=== PATIENT | male | born 1980 | race Two or more races ===

== ENCOUNTER 2017-03-14 10:52 | Emergency (ER) | payer SELFPAY ==
[~2017-03-14] VITALS: Ht 193 cm; Wt 71.8 kg
[2017-03-14 11:21] LABS: BILIRUBIN,URINE NEGATIVE (NEG); GLUCOSE,URINE NEGATIVE (NEG); NITRITE,URINE NEGATIVE (NEG); PROTEIN,URINE NEGATIVE (NEG-TRACE); UROBILINOGEN,URINE 0.2 mg/dL (0.2 mg/dL)
[2017-03-14 11:54] LABS: BACTERIA,URINE 0 /HPF (0-FEW); RBC,URINE 0 /HPF (0-2); WBC,URINE 0 /HPF (0-4)
[2017-03-14 12:39] LABS: BASO % 1 % (0-3); EOS % 2 % (0-3); HEMATOCRIT 45.3 % (39.0-53.0); HEMOGLOBIN 15.2 g/dL (13.0-17.5); LYMPH # 1.3 x10^3/uL (1.0-4.8); LYMPH % 28 % (24-48); MEAN CORPUSCULAR HEMOGLOBIN 30 pg (25-35); MEAN CORPUSCULAR HGB CONC 34 g/dL (31-37); MEAN CORPUSCULAR VOLUME 91 fL (79-100); MONO % 9 % (0-9); NEUT % 61 % (31-73); PLATELET COUNT 284 x10^3/uL (140-400); RED CELL DISTRIBUTION WIDTH 13.5 % (11.5-14.5); WHITE BLOOD COUNT 4.8 x10^3/uL (4.0-11.0)
[2017-03-14] MEDS ORDERED: IV NORMAL SALINE 1000ML BAG 1,000 ML IV ONE (12:45)
[2017-03-14] MEDS ORDERED: ONDANSETRON PF 4 MG/2 ML VIAL. IV ONE (12:45)
--- NOTE | 2017-03-14 12:52 | PHYS DOC ---
Past Medical History Past Medical History: No Pertinent History Past Surgical History: No Surgical History Additional Information: "Almost 2 PPD" per pt. Alcohol Use: Occasionally Additional Information: "6 Pack a week," per pt. Drug Use: Marijuana Social History Narrative: Pt reports he smoked Marijuana yesterday. Adult General Chief Complaint Chief Complaint: FLANK PAIN HPI HPI Patient is a 36 year old male with no significant medical history who presents with multiple complaints. Patient states his had intermittent episodes of nausea vomiting and diarrhea for the last 3 weeks. Patient states his noted his lost 25 pounds in the last 1 month. Patient's also complaining of bilateral flank, and low back pain. Patient denies any hematemesis or melena. He states he has history of smoking. Patient is also complaining of left upper quadrant abdominal pain. Patient denies any fever. Review of Systems Review of Systems Constitutional: See history of present illness. Eyes: Denies change in visual acuity, redness, or eye pain [] HENT: Denies nasal congestion or sore throat [] Respiratory: Denies cough or shortness of breath [] Cardiovascular: No additional information not addressed in HPI [] GI: Left upper quadrant abdominal pain, nausea vomiting and diarrhea : Bilateral flank pain and low back pain Musculoskeletal: Denies back pain or joint pain [] Integument: Denies rash or skin lesions [] Neurologic: Denies headache, focal weakness or sensory changes [] Endocrine: Denies polyuria or polydipsia [] Current Medications Current Medications Current Medications Medications (Trade) Dose Ordered Sig/Donavon Start Time Stop Time Status Last Admin Dose Admin Famotidine (Pepcid) 20 mg 1X ONCE 03/14/17 13:00 03/14/17 13:01 DC 03/14/17 13:30 20 MG Morphine Sulfate 5 mg 1X ONCE 03/14/17 14:15 03/14/17 14:16 DC 03/14/17 14:26 5 MG Ondansetron HCl 4 mg 4 mg 1X ONCE 03/14/17 12:45 03/14/17 12:46 DC 03/14/17 12:45 4 MG Sodium Chloride (Iv Sodium Chloride 0.9% 1000ml Bag) 1,000 ml @ 1,000 mls/hr 1X ONCE 03/14/17 12:45 03/14/17 13:44 DC 03/14/17 12:45 1,000 MLS/HR Allergies Allergies Allergies Coded Allergies Type Severity Reaction Last Updated Verified No Known Drug Allergies 03/14/17 No Physical Exam Physical Exam Constitutional: Appears thinner than his height, no acute distress, non-toxic appearance. [] HENT: Normocephalic, atraumatic, bilateral external ears normal, oropharynx moist, no oral exudates, nose normal. [] Eyes: PERRLA, EOMI, conjunctiva normal, no discharge. [] Neck: Normal range of motion, no tenderness, supple, no stridor. [] Cardiovascular:Heart rate regular rhythm, no murmur [] Lungs & Thorax: Bilateral breath sounds clear to auscultation [] Abdomen: Bowel sounds normal, soft, no tenderness, no masses, no pulsatile masses. [] Skin: Warm, dry, no erythema, no rash. [] Back: No tenderness, no CVA tenderness. [] Extremities: No tenderness, no cyanosis, no clubbing, ROM intact, no edema. [] Neurologic: Alert and oriented X 3, normal motor function, normal sensory function, no focal deficits noted. [] Psychologic: Affect normal, judgement normal, mood normal. [] Current Patient Data Vital Signs Vital Signs Date Time Temp Pulse Resp B/P Pulse Ox O2 Delivery O2 Flow Rate FiO2 03/14/17 14:26 18 98 03/14/17 14:00 58 131/68 Room Air 03/14/17 11:17 97.6 97.6 Lab Values Laboratory Tests Test 03/14/17 11:05 03/14/17 12:25 Urine Collection Type Unknown Urine Color Yellow Urine Clarity Clear Urine pH 7.0 Urine Specific [place] 1.010 Urine Protein Negativemg/dL (NEG-TRACE) Urine Glucose (UA) Negativemg/dL (NEG) Urine Ketones (Stick) Negativemg/dL (NEG) Urine Blood Negative (NEG) Urine Nitrite Negative (NEG) Urine Bilirubin Negative (NEG) Urine Urobilinogen Dipstick 0.2mg/dL (0.2 mg/dL) Urine Leukocyte Esterase Negative (NEG) Urine RBC 0/HPF (0-2) Urine WBC 0/HPF (0-4) Urine Bacteria 0/HPF (0-FEW) White Blood Count 4.8x10^3/uL (4.0-11.0) Red Blood Count 5.00x10^6/uL (4.30-5.70) Hemoglobin 15.2g/dL (13.0-17.5) Hematocrit 45.3% (39.0-53.0) Mean Corpuscular Volume 91fL (79-100) Mean Corpuscular Hemoglobin 30pg (25-35) Mean Corpuscular Hemoglobin Concent 34g/dL (31-37) Red Cell Distribution Width 13.5% (11.5-14.5) Platelet Count 284x10^3/uL (140-400) Neutrophils (%) (Auto) 61% (31-73) Lymphocytes (%) (Auto) 28% (24-48) Monocytes (%) (Auto) 9% (0-9) Eosinophils (%) (Auto) 2% (0-3) Basophils (%) (Auto) 1% (0-3) Neutrophils # (Auto) 2.9x10^3uL (1.8-7.7) Lymphocytes # (Auto) 1.3x10^3/uL (1.0-4.8) Monocytes # (Auto) 0.4x10^3/uL (0.0-1.1) Eosinophils # (Auto) 0.1x10^3/uL (0.0-0.7) Basophils # (Auto) 0.0x10^3/uL (0.0-0.2) Sodium Level 138mmol/L (136-145) Potassium Level 3.9mmol/L (3.5-5.1) Chloride Level 102mmol/L (98-107) Carbon Dioxide Level 29mmol/L (21-32) Anion Gap 7 (6-14) Blood Urea Nitrogen 8mg/dL (8-26) Creatinine 0.9mg/dL (0.7-1.3) Estimated GFR (Cockcroft-Gault) 94.4 BUN/Creatinine Ratio 9 (6-20) Glucose Level 91mg/dL (70-99) Calcium Level 9.0mg/dL (8.5-10.1) Total Bilirubin 0.3mg/dL (0.2-1.0) Aspartate Amino Transferase (AST) 34U/L (15-37) Alanine Aminotransferase (ALT) 50U/L (16-63) Alkaline Phosphatase 55U/L (46-116) Total Protein 7.7g/dL (6.4-8.2) Albumin 3.7g/dL (3.4-5.0) Albumin/Globulin Ratio 0.9 (1.0-1.7) L Lipase 123U/L (73-393) Thyroid Stimulating Hormone (TSH) 1.409uIU/mL (0.358-3.74) Ethyl Alcohol Level < 10mg/dL (0-10) Laboratory Tests 03/14/17 12:25 Laboratory Tests 03/14/17 12:25 EKG EKG [] Radiology/Procedures Radiology/Procedures [] Course & Med Decision Making Course & Med Decision Making Pertinent Labs and Imaging studies reviewed. (See chart for details) This is a 36-year-old male patient who presents in the ED with multiple complaints including weight loss of 25 pounds in the last 1 month, nausea vomiting and diarrhea for 1 month on and off, left upper quadrant abdominal pain for 1 month, bilateral flank and low back pain for 1 month. Patient is a smoker. Educated on smoking cessation. Urine negative for infection. CBC CMP lipase with no acute findings. CT of the abdomen and pelvic was done to rule out kidney stones which the radiologist mentions patient could have primarily degenerative osteoarthritis of the SI joint and may be erosive in nature, or hyperthyroidism Radiology mentions patient may need to do blood tests including serum calcium and parathyroid levels. TSH is 1.49 and calcium is 9.0 Patient states he has an appointment with the [facility] clinic on March. Informed patient to make sure he follows up for this and they can follow up with CT concerns. Dragon Disclaimer Dragon Disclaimer This electronic medical record was generated, in whole or in part, using a voice recognition dictation system. Departure Departure Impression: Primary Impression: Smoking addiction Additional Impression: Back pain Disposition: HOME, SELF-CARE Condition: STABLE Referrals: NO PCP (PCP) [facility] as soon as you can Patient Instructions: Back Pain, Adult Additional Instructions: Your CT of the abdomen and pelvic was concerning for possible hyperthyroidism and degenerative osteoarthritis on your back. We recommend you follow-up with your doctor as soon as possible. Scripts Calcium Carbonate/Vitamin D3 (Calcium + Vitamin D Tablet)1 Each Tablet1 Each PO DAILY #30 TAB Prov:LEROY BEST APRN 03/14/17 Cyclobenzaprine Hcl 10 Mg Tablet1 Tab PO TID #30 TAB Prov:MUTUNGA,LEROY VERONIKA 03/14/17 Hydrocodone/Apap 5-325 ([place]ley 5-325 Tablet)1 Each Tablet1-2 Tab PO Q4-6HRS #20 TAB Prov:HEVERROSEANNLEROY BANDA 03/14/17 Problem Qualifiers Additional Impression: Back pain Back pain location: low back pain Chronicity: acute Back pain laterality: bilateral Sciatica presence: without sciatica Qualified Code: M54.5 - Low back pain LEROY BEST APRN Mar 14, 2017 12:51
[2017-03-14 13:00] LABS: CALCIUM 8.8 mg/dL (8.5-10.1); CREATININE 0.9 mg/dL (0.7-1.3); GFR 94.4; POTASSIUM 3.9 mmol/L (3.5-5.1)
[2017-03-14] MEDS ORDERED: FAMOTIDINE 20 MG/2 ML VIAL IVP ONE (13:00)
--- NOTE | 2017-03-14 13:00 | RAD ---
CT study of the abdomen and pelvis without contrast Clinical indications: Bilateral flank pain for one month which has become worse over the last 4 days. No prior surgical history. Technique: Noncontrast helical CT scanning of the abdomen and pelvis was performed. Without contrast, the sensitivity to detect organ pathology and GI tract pathology is decreased. PQRS Compliance Statement: One or more of the following individualized dose reduction techniques were utilized for this examination: 1. Automated exposure control 2. Adjustment of the mA and/or kV according to patient size 3. Use of iterative reconstruction technique Findings: The liver and spleen and pancreas are homogeneous in appearance on this noncontrast study. The gallbladder is normal and no extra hepatic biliary ductal dilatation is seen. No adrenal mass is evident. No renal mass is seen on either side on this noncontrast study. No urinary tract stone is evident. No hydronephrosis or hydroureter is seen. Urinary bladder wall is smooth. No focal aneurysmal dilatation of the abdominal aorta is seen. No enlarged abdominal or pelvic lymphadenopathy is seen. The appendix is normal. No obstructive bowel pattern is evident. No free air or free fluid or inflammatory change is seen. No lung base consolidation is seen. No osteolytic process is seen. 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 IMPRESSION: No acute abnormality of the abdomen or pelvis is seen. Specifically, no urinary tract stone or hydronephrosis or hydroureter is seen. 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 This may may be seen with the seronegative HLA positive spondyloarthropathies including ankylosing spondylitis and inflammatory bowel disease and psoriasis and Jeannie's syndrome. However, there are no other findings of ankylosing spondylitis. No erosive arthropathy of the facet joints or hip joints is seen to indicate rheumatoid arthritis. This finding may be seen with hyperparathyroidism. Typically, an infection of the SI joints is asymmetric and not likely in this case therefore. Primary degenerative osteoarthritis of the SI joints is another possibility and may be erosive in nature. Correlation with clinical history and blood tests such as serum calcium and parathormone levels may be helpful in differentiating these conditions.
[2017-03-14 13:02] LABS: ALBUMIN 3.7 g/dL (3.4-5.0); ALBUMIN/GLOBULIN RATIO 0.9 (1.0-1.7); TOTAL BILIRUBIN 0.3 mg/dL (0.2-1.0); TOTAL PROTEIN 7.7 g/dL (6.4-8.2)
[2017-03-14 14:00] VITALS: BP 131/68
[2017-03-14] MEDS ORDERED: MORPHINE SULFATE 10 MG/ML VIAL. IV ONE (14:15)
[2017-03-14] MEDS ORDERED: CALC-98 PO (15:06)
[2017-03-14] MEDS ORDERED: HYDR-971 PO (15:06)
[2017-03-14] MEDS ORDERED: CYCL10TA2 PO (15:06)
[2017-03-15 11:16] LABS: BARBITURATES NEG (NEG); BENZODIAZEPINES NEG (NEG); CANNABINOIDS POS (NEG); COCAINE NEG (NEG); METHADONE NEG (NEG); OPIATES NEG (NEG); PHENCYCLIDINE NEG (NEG)
== END 2017-03-14 15:07 | disposition home or self-care (01) ==
LOC: ER 10:52
DX: M54.5 Low back pain (principal); F17.200 Nicotine dependence, unspecified, uncomplicated; R10.12 Left upper quadrant pain; R19.7 Diarrhea, unspecified; R11.2 Nausea with vomiting, unspecified; F12.10 Cannabis abuse, uncomplicated
CPT/HCPCS: 36415; 74176; 80053; 80305; 80320; 81001; 82310; 83690; 84443; 85027; 96361; 96374; 96375; 99285; J2270; J2405; J7030; S0028; G0480; G0481

== ENCOUNTER 2017-10-18 07:44 | Emergency (ER) | payer SELFPAY ==
[~2017-10-18] VITALS: Ht 193 cm; Wt 77.1 kg
[~2017-10-18 07:44] MED LIST: CALC-98 PO; CYCL10TA2 PO; HYDR-971 PO
[2017-10-18] MEDS ORDERED: KETOROLAC 30 MG/ML INJ. IV ONE (08:15)
[2017-10-18] MEDS ORDERED: IV NORMAL SALINE 1000ML BAG 1,000 ML IV ONE (08:15)
--- NOTE | 2017-10-18 08:18 | PHYS DOC ---
Past Medical History Past Medical History: No Pertinent History Past Surgical History: No Surgical History Alcohol Use: Occasionally Drug Use: Marijuana Adult General Chief Complaint Chief Complaint: FLANK PAIN HPI HPI Patient is a 36 year old male presents to the ED complaining of left flank pain x 1 week. States feels like left flank is having spasms. Describes the pain as sharp. Rates the pain as 6/10. Pain radiates from left flank to left lower abdomen. 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 Denies chest pain, shortness of breath, nausea/vomiting, fever, weakness, dysuria, hematuria or testicular swelling. Review of Systems Review of Systems Constitutional: Denies fever or chills [] Eyes: Denies change in visual acuity, redness, or eye pain [] HENT: Denies nasal congestion or sore throat [] Respiratory: Denies cough or shortness of breath [] Cardiovascular: No additional information not addressed in HPI [] GI: Denies nausea, vomiting, bloody stools or diarrhea [] : Denies dysuria or hematuria [] Musculoskeletal: Denies back pain or joint pain [] Integument: Denies rash or skin lesions [] Neurologic: Denies headache, focal weakness or sensory changes [] Endocrine: Denies polyuria or polydipsia [] All other systems were reviewed and found to be within normal limits, except as documented in this note. Current Medications Current Medications Current Medications Medications (Trade) Dose Ordered Sig/Donavon Start Time Stop Time Status Last Admin Dose Admin Ketorolac Tromethamine (Toradol) 30 mg 1X ONCE 10/18/17 08:15 10/18/17 08:16 DC 10/18/17 08:49 30 MG Sodium Chloride 1,000 ml @ 1,000 mls/hr 1X ONCE 10/18/17 08:15 10/18/17 09:14 DC 10/18/17 08:48 1,000 MLS/HR Allergies Allergies Allergies Coded Allergies Type Severity Reaction Last Updated Verified No Known Drug Allergies 03/14/17 No Physical Exam Physical Exam Constitutional: Well developed, well nourished, no acute distress, non-toxic appearance. [] HENT: Normocephalic, atraumatic, bilateral external ears normal, oropharynx moist, no oral exudates, nose normal. [] Eyes: PERRLA, EOMI, conjunctiva normal, no discharge. [] Neck: Normal range of motion, no tenderness, supple, no stridor. [] Cardiovascular:Heart rate regular rhythm, no murmur [] Lungs & Thorax: Bilateral breath sounds clear to auscultation [] Abdomen: Bowel sounds normal, soft, no tenderness, no masses, no pulsatile masses. [] Skin: Warm, dry, no erythema, no rash. [] Back: No tenderness, MILD LEFT CVA TENDERNESS. [] Extremities: No tenderness, no cyanosis, no clubbing, ROM intact, no edema. [] Neurologic: Alert and oriented X 3, normal motor function, normal sensory function, no focal deficits noted. [] Psychologic: Affect normal, judgement normal, mood normal. [] Current Patient Data Vital Signs Vital Signs Date Time Temp Pulse Resp B/P (MAP) Pulse Ox O2 Delivery O2 Flow Rate FiO2 10/18/17 09:12 60 116/76 (89) 100 Room Air 10/18/17 08:05 98.0 16 98.0 Lab Values Laboratory Tests Test 10/18/17 07:59 10/18/17 08:20 10/18/17 08:45 Urine Collection Type Unknown Urine Color Yellow Urine Clarity Clear Urine pH 7.0 Urine Specific [place] 1.010 Urine Protein Negative mg/dL (NEG-TRACE) Urine Glucose (UA) Negative mg/dL (NEG) Urine Ketones (Stick) Negative mg/dL (NEG) Urine Blood Negative (NEG) Urine Nitrite Negative (NEG) Urine Bilirubin Negative (NEG) Urine Urobilinogen Dipstick 0.2 mg/dL (0.2 mg/dL) Urine Leukocyte Esterase Negative (NEG) Urine RBC 0 /HPF (0-2) Urine WBC 0 /HPF (0-4) Urine Bacteria 0 /HPF (0-FEW) White Blood Count 5.3 x10^3/uL (4.0-11.0) Red Blood Count 4.85 x10^6/uL (4.30-5.70) Hemoglobin 14.5 g/dL (13.0-17.5) Hematocrit 44.0 % (39.0-53.0) Mean Corpuscular Volume 91 fL (79-100) Mean Corpuscular Hemoglobin 30 pg (25-35) Mean Corpuscular Hemoglobin Concent 33 g/dL (31-37) Red Cell Distribution Width 12.5 % (11.5-14.5) Platelet Count 306 x10^3/uL (140-400) Sodium Level 139 mmol/L (136-145) Potassium Level 4.1 mmol/L (3.5-5.1) Chloride Level 104 mmol/L (98-107) Carbon Dioxide Level 33 mmol/L (21-32) H Anion Gap 2 (6-14) L Blood Urea Nitrogen 11 mg/dL (8-26) Creatinine 0.9 mg/dL (0.7-1.3) Estimated GFR (Cockcroft-Gault) 94.4 BUN/Creatinine Ratio 12 (6-20) Glucose Level 91 mg/dL (70-99) Calcium Level 9.2 mg/dL (8.5-10.1) Total Bilirubin 0.3 mg/dL (0.2-1.0) Aspartate Amino Transferase (AST) 20 U/L (15-37) Alanine Aminotransferase (ALT) 21 U/L (16-63) Alkaline Phosphatase 65 U/L (46-116) Total Protein 7.3 g/dL (6.4-8.2) Albumin 3.4 g/dL (3.4-5.0) Albumin/Globulin Ratio 0.9 (1.0-1.7) L Lipase 98 U/L (73-393) Laboratory Tests 10/18/17 08:20 Laboratory Tests 10/18/17 08:45 EKG EKG [] Radiology/Procedures Radiology/Procedures PROCEDURE: CT ABDOMEN PELVIS WO CONTRAST Examination: CT of the abdomen pelvis without contrast History: History of left flank pain Comparison: 03/14/2017 Technique: Axial CT images of the abdomen pelvis were performed without contrast. Coronal and sagittal liver was performed PQRS Compliance Statement: One or more of the following individualized dose reduction techniques were utilized for this examination: 1. Automated exposure control 2. Adjustment of the mA and/or kV according to patient size 3. Use of iterative reconstruction technique Findings: The visualized bibasal lungs grossly appears unremarkable no evidence of free identified. The visualized noncontrasted liver, spleen, adrenals grossly appears unremarkable. The gallbladder is mildly distended. The stomach is mildly distended. The visualized pancreas grossly appears unremarkable. Small bowel is nondilated. The appendix is normal. Feces and gas noted in the colon. Urinary bladder is mildly distended. No evidence of intrarenal collecting system calculi identified. Minimal prominent appearing bilateral extrarenal pelvis. Few calcified pelvic phleboliths identified Sclerotic changes identified in the bilateral SI joints again identified with probable minimal increase in erosive changes. Old fracture or congenital nonfusion of the left transverse process of L4 grossly similar to prior exam/ Impression: 1. No evidence of intrarenal collecting system calculi or hydronephrosis. 2. Sclerotic appearance of the bilateral SI joints again identified with probable minimal increase in erosive changes. [] Course & Med Decision Making Course & Med Decision Making Pertinent Labs and Imaging studies reviewed. (See chart for details) []Discussed lab and imaging findings with patient. Patient's pain improved. Vital stable, no acute distress. On reexamination, abdomen is soft nontender nondistended. No peritoneal signs. Will treat with analgesics and muscle relaxer. 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 Discussed follow-up early this week. Discussed reasons to return to the ED. Patient understands and agrees with plan. Dragon Disclaimer Dragon Disclaimer This electronic medical record was generated, in whole or in part, using a voice recognition dictation system. Departure Departure Impression: Primary Impression: Back pain Additional Impression: Flank pain Disposition: 01 HOME, SELF-CARE Condition: IMPROVED Referrals: NO PCP (PCP) ORESTES EDWARDS MD, MICHAEL M MD Patient Instructions: Back Pain, Adult Scripts Cyclobenzaprine Hcl (CYCLOBENZAPRINE HCL) 5 Mg Tablet 1 TAB PO TID, #12 TAB Prov: GLENDA LOPEZ 10/18/17 Hydrocodone/Apap 5-325 (NORCO 5-325 TABLET) 1 Each Tablet 1 TAB PO TID, #10 TAB Prov: GLENDA LOPEZ 10/18/17 Problem Qualifiers GLENDA LOPEZ Oct 18, 2017 08:17
[2017-10-18 08:20] LABS: BILIRUBIN,URINE NEGATIVE (NEG); GLUCOSE,URINE NEGATIVE (NEG); NITRITE,URINE NEGATIVE (NEG); PROTEIN,URINE NEGATIVE (NEG-TRACE); UROBILINOGEN,URINE 0.2 mg/dL (0.2 mg/dL)
[2017-10-18 08:32] LABS: HEMOGLOBIN 14.5 g/dL (13.0-17.5); RED BLOOD COUNT 4.85 x10^6/uL (4.30-5.70); RED CELL DISTRIBUTION WIDTH 12.5 % (11.5-14.5); WHITE BLOOD COUNT 5.3 x10^3/uL (4.0-11.0)
[2017-10-18 08:37] LABS: BACTERIA,URINE 0 /HPF (0-FEW); RBC,URINE 0 /HPF (0-2); WBC,URINE 0 /HPF (0-4)
--- NOTE | 2017-10-18 09:03 | RAD ---
Examination: CT of the abdomen pelvis without contrast History: History of left flank pain Comparison: 03/14/2017 Technique: Axial CT images of the abdomen pelvis were performed without contrast. Coronal and sagittal liver was performed PQRS Compliance Statement: One or more of the following individualized dose reduction techniques were utilized for this examination: 1. Automated exposure control 2. Adjustment of the mA and/or kV according to patient size 3. Use of iterative reconstruction technique Findings: The visualized bibasal lungs grossly appears unremarkable no evidence of free identified. The visualized noncontrasted liver, spleen, adrenals grossly appears unremarkable. The gallbladder is mildly distended. The stomach is mildly distended. The visualized pancreas grossly appears unremarkable. Small bowel is nondilated. The appendix is normal. Feces and gas noted in the colon. Urinary bladder is mildly distended. No evidence of intrarenal collecting system calculi identified. Minimal prominent appearing bilateral extrarenal pelvis. Few calcified pelvic phleboliths identified Sclerotic changes identified in the bilateral SI joints again identified with probable minimal increase in erosive changes. Old fracture or congenital nonfusion of the left transverse process of L4 grossly similar to prior exam/ Impression: 1. No evidence of intrarenal collecting system calculi or hydronephrosis. 2. Sclerotic appearance of the bilateral SI joints again identified with probable minimal increase in erosive changes.
[2017-10-18 09:05] LABS: CALCIUM 9.2 mg/dL (8.5-10.1); CREATININE 0.9 mg/dL (0.7-1.3); GFR 94.4; POTASSIUM 4.1 mmol/L (3.5-5.1)
[2017-10-18 09:11] LABS: ALBUMIN 3.4 g/dL (3.4-5.0); ALBUMIN/GLOBULIN RATIO 0.9 (1.0-1.7); TOTAL BILIRUBIN 0.3 mg/dL (0.2-1.0); TOTAL PROTEIN 7.3 g/dL (6.4-8.2)
[2017-10-18 09:12] VITALS: BP 116/76
[2017-10-18] MEDS ORDERED: CYCL5TAB PO (09:26)
[2017-10-18] MEDS ORDERED: HYDR-971 PO (09:26)
== END 2017-10-18 09:25 | disposition home or self-care (01) ==
LOC: ER 07:44
DX: R10.9 Unspecified abdominal pain (principal); M54.9 Dorsalgia, unspecified; F12.10 Cannabis abuse, uncomplicated
CPT/HCPCS: 36415; 74176; 80053; 81001; 83690; 85027; 96374; 99285; J1885; J7030; 96361

== ENCOUNTER 2021-04-21 22:31 | Emergency (ER) | payer SELFPAY ==
[~2021-04-21 22:31] MED LIST changes: +CYCL5TAB PO; +HYDR-3164 PO; -HYDR-971 PO
[2021-04-21 22:37] VITALS: BP 127/90
== END 2021-04-22 01:40 | disposition left against medical advice (07) ==
LOC: ER 22:31
DX: L02.212 Cutaneous abscess of back [any part, except buttock and flank] (principal); Z53.21 Procedure and treatment not carried out due to patient leaving prior to being seen by health care provider